=== PATIENT | male | born 1980 | race Hispanic/Latino ===

== ENCOUNTER 2018-06-27 19:26 | Emergency (ER) | payer SELFPAY ==
[2018-06-27] MEDS ORDERED: KETOROLAC TROMETHAMINE 60 MG/2 ML VIAL ONE (19:58)
== END 2018-06-27 20:58 | disposition home or self-care (01) ==
LOC: EDH 19:26
DX: S20.219A Contusion of unspecified front wall of thorax, initial encounter (principal); M54.2 Cervicalgia; M25.511 Pain in right shoulder; V49.49XA Driver injured in collision with other motor vehicles in traffic accident, initial encounter; Y93.89 Activity, other specified; Y92.89 Other specified places as the place of occurrence of the external cause; Y99.8 Other external cause status
CPT/HCPCS: 71045; 72125; 73030; 93005; 96372; 99284; J1885